=== PATIENT | female | born 1980 | race Caucasian/White ===

== ENCOUNTER 2016-12-10 09:55 | Emergency (ER) | payer SELFPAY ==
[2016-12-10] MEDS ORDERED: IBUP-1007 PO (10:05)
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
[2016-12-10 10:25] VITALS: BP 135/78
== END 2016-12-10 10:30 | disposition home or self-care (01) ==
LOC: ER 09:55
DX: S20.229A Contusion of unspecified back wall of thorax, initial encounter (principal); V49.59XA Passenger injured in collision with other motor vehicles in traffic accident, initial encounter; Y93.89 Activity, other specified; Y92.89 Other specified places as the place of occurrence of the external cause; Y99.8 Other external cause status
CPT/HCPCS: 99283